=== PATIENT | female | born 1970 | race Caucasian/White ===

== ENCOUNTER 2021-10-03 09:54 | Inpatient (IN) | payer OTHER ==
[2021-10-03 10:54] LABS: Basophils % (A) 0 %; Eosinophils # (A) 0.2 k/uL (0-0.7); Eosinophils % (A) 1 %; HCT 40.9 % (34.0-46.0); HGB 14.2 gm/dL (11.4-16.0); Lymphocytes # (A) 1.1 k/uL (1.0-4.8); Lymphocytes % (A) 6 %; MCH 32.3 pg (25.0-35.0); MCHC 34.7 g/dL (31.0-37.0); MCV 93.2 fL (80.0-100.0); Mean Platelet Volume 8.9; Monocytes # (A) 0.9 k/uL (0-1.0); Monocytes % (A) 5 %; Neutrophils # (A) 16.4 k/uL (1.3-7.7); Neutrophils % (A) 88 %; Platelet Count 236 k/uL (150-450); RBC 4.39 m/uL (3.80-5.40); RDW 12.7 % (11.5-15.5); WBC 18.7 k/uL (3.8-10.6)
[2021-10-03 11:02] LABS: Appearance,Urine Cloudy (Clear); Bacteria,Urine Few /hpf; Bilirubin,Urine Negative (Negative); Blood,Urine Small (Negative); Color,Urine Yellow; Glucose,Urine (UA) Negative (Negative); Ketones,Urine 4+ (Negative); Leukocyte Esterase,Urine Moderate (Negative); Mucus,Urine Few /hpf; Nitrite,Urine Negative (Negative); Protein,Urine 2+ (Negative); RBC,Urine 7 /hpf (0-5); Specific Gravity,Urine 1.028 (1.001-1.035); Squamous Epithelial Cell,Urine 9 /hpf (0-4); WBC,Urine 12 /hpf (0-5)
[2021-10-03 11:08] LABS: ALT 13 U/L (4-34); AST 17 U/L (14-36); African American GFR (CKD) >90 (>60 ml/min/1.73 sqM); Albumin 3.8 g/dL (3.5-5.0); Alkaline Phosphatase 105 U/L (38-126); Amylase 44 U/L (30-110); Anion Gap 13 mmol/L; Blood Urea Nitrogen 9 mg/dL (7-17); Carbon Dioxide 25 mmol/L (22-30); Chloride 98 mmol/L (98-107); Glucose 106 mg/dL (74-99); Lipase 25 U/L (23-300); Non-African American GFR(CKD) 88 (>60 ml/min/1.73 sqM); Potassium 4.1 mmol/L (3.5-5.1); Sodium 136 mmol/L (137-145); Total Bilirubin 0.8 mg/dL (0.2-1.3)
[2021-10-03] MEDS ORDERED: SODIUM CHLORIDE 0.9% 2,000 ML IV ONE (11:26)
--- NOTE | 2021-10-03 11:37 | ED ---
Abdominal Pain HPI - General Chief Complaint: Abdominal Pain Stated Complaint: Appendicitis Time Seen by Provider: 10/03/21 11:25 Source: patient, RN notes reviewed Mode of arrival: ambulatory Limitations: no limitations - History of Present Illness Initial Comments: This a 51-year-old female presents emergency Department chief complaint of right-sided abdominal pain. Patient states pain started Saturday and has progressively worsened. Patient states decreased appetite, no reported fever chills states pain is worse with movement especially twisting bending sitting up. Patient said some nausea no vomiting no diarrhea no constipation no prior abdominal surgeries. Patient evaluated by outpatient primary care physician referred to emergency from for possible appendicitis. - Related Data Allergies Allergy/AdvReac Type Severity Reaction Status Date / Time No Known Allergies Allergy Verified 10/03/21 10:33 Review of Systems ROS Statement: Those systems with pertinent positive or pertinent negative responses have been documented in the HPI. ROS Other: All systems not noted in ROS Statement are negative. Past Medical History Past Medical History: No Reported History History of Any Multi-Drug Resistant Organisms: None Reported Past Surgical History: No Surgical Hx Reported Past Psychological History: No Psychological Hx Reported Smoking Status: Never smoker Past Alcohol Use History: Occasional Past Drug Use History: None Reported General Exam Limitations: no limitations General appearance: alert, in no apparent distress Head exam: Present: atraumatic, normocephalic, normal inspection Eye exam: Present: normal appearance, PERRL, EOMI. Absent: scleral icterus, conjunctival injection, periorbital swelling Respiratory exam: Present: normal lung sounds bilaterally. Absent: respiratory distress, wheezes, rales, rhonchi, stridor Cardiovascular Exam: Present: regular rate, normal rhythm, normal heart sounds. Absent: systolic murmur, diastolic murmur, rubs, gallop, clicks GI/Abdominal exam: Present: soft, tenderness (Right lower quadrant), normal bowel sounds. Absent: distended, guarding, rebound, rigid Back exam: Absent: CVA tenderness (R), CVA tenderness (L) Neurological exam: Present: alert Skin exam: Present: warm, dry, intact, normal color. Absent: rash Course Vital Signs 10/03/21 10:30 Temperature 99.0 F Pulse Rate 119 H Respiratory 18 Rate Blood Pressure 132/81 O2 Sat by Pulse 98 Oximetry Medical Decision Making - Medical Decision Making CT shows evidence of severe acute appendicitis. Patient has leukocytosis, low-grade fever. Antibiotics were ordered, IV fluid hydration case discussed with Dr Sheppard. - Lab Data Result diagrams: 10/03/21 10:41 10/03/21 10:41 Lab Results 10/03/21 10/03/21 10/03/21 Range/Units 10:41 10:41 10:48 WBC 18.7 H (3.8-10.6) k/uL RBC 4.39 (3.80-5.40) m/uL Hgb 14.2 (11.4-16.0) gm/dL Hct 40.9 (34.0-46.0) % MCV 93.2 (80.0-100.0) fL MCH 32.3 (25.0-35.0) pg MCHC 34.7 (31.0-37.0) g/dL RDW 12.7 (11.5-15.5) % Plt Count 236 (150-450) k/uL MPV 8.9 Neutrophils % 88 % Lymphocytes % 6 % Monocytes % 5 % Eosinophils % 1 % Basophils % 0 % Neutrophils # 16.4 H (1.3-7.7) k/uL Lymphocytes # 1.1 (1.0-4.8) k/uL Monocytes # 0.9 (0-1.0) k/uL Eosinophils # 0.2 (0-0.7) k/uL Basophils # 0.0 (0-0.2) k/uL Sodium 136 L (137-145) mmol/L Potassium 4.1 (3.5-5.1) mmol/L Chloride 98 (98-107) mmol/L Carbon Dioxide 25 (22-30) mmol/L Anion Gap 13 mmol/L BUN 9 (7-17) mg/dL Creatinine 0.78 (0.52-1.04) mg/dL Est GFR (CKD-EPI)AfAm >90 (>60 ml/min/1.73 sqM) Est GFR (CKD-EPI)NonAf 88 (>60 ml/min/1.73 sqM) Glucose 106 H (74-99) mg/dL Calcium 9.0 (8.4-10.2) mg/dL Total Bilirubin 0.8 (0.2-1.3) mg/dL AST 17 (14-36) U/L ALT 13 (4-34) U/L Alkaline Phosphatase 105 (38-126) U/L Total Protein 7.0 (6.3-8.2) g/dL Albumin 3.8 (3.5-5.0) g/dL Amylase 44 (30-110) U/L Lipase 25 (23-300) U/L Urine Color Yellow Urine Appearance Cloudy H (Clear) Urine pH 6.0 (5.0-8.0) Ur Specific [place] 1.028 (1.001-1.035) Urine Protein 2+ H (Negative) Urine Glucose (UA) Negative (Negative) Urine Ketones 4+ H (Negative) Urine Blood Small H (Negative) Urine Nitrite Negative (Negative) Urine Bilirubin Negative (Negative) Urine Urobilinogen 2.0 (<2.0) mg/dL Ur Leukocyte Esterase Moderate H (Negative) Urine RBC 7 H (0-5) /hpf Urine WBC 12 H (0-5) /hpf Ur Squamous Epith Cells 9 H (0-4) /hpf Urine Bacteria Few H (None) /hpf Urine Mucus Few H (None) /hpf Disposition Clinical Impression: Acute appendicitis Disposition: ADMITTED IP TO THIS [facility] Condition: Fair Referrals: None,Stated [Primary Care Provider] - 1-2 days
[2021-10-03] MEDS ORDERED: PIPERACILLIN-TAZOBACTAM 3.375 GM in SODIUM CHLORIDE 0.9% 100 ML IVPB STA (12:33)
[2021-10-03] MEDS ORDERED: SODIUM CHLORIDE 0.9% 1,000 ML IV ONE ×3 (12:33→18:53)
--- NOTE | 2021-10-03 12:39 | CT ---
EXAMINATION TYPE: CT abdomen pelvis w con DATE OF EXAM: 10/03/2021 HISTORY: Abdominal pain. Right lower quadrant pain since Saturday.r CT DLP: 881.1mGycm Automated Exposure Control for Dose Reduction was Utilized. CONTRAST: CT scan of the abdomen and pelvis is performed without oral but with IV Contrast, patient injected wi th 100 mL of Isovue 300. COMPARISON: None FINDINGS: LUNG BASES: No significant abnormality is appreciated. LIVER/GB: There is 1.8 cm thin-walled cyst in the left hepatic dome axial image 9. A few additional s ubcentimeter hypodense foci throughout the remainder liver are present. PANCREAS: No significant abnormality is seen. SPLEEN: No significant abnormality is seen. ADRENALS: Symmetric Thickening through both adrenal glands favors hyperplasia. KIDNEYS: Symmetric cortical medullary uptake and excretion without hydronephrosis seen bilaterally. BOWEL: There is 9 mm appendicolith at the base normal image 50. There are smaller appendicoliths dist ally coronal image 47. Appendix is dilated to 15 mm coronal image 48. There is severe ill-defined flu id and fat stranding surrounding the appendix. There is moderate concentric wall thickening in the te rminal and distal ileum likely reactive. No free air. No well-formed fluid collection or abscess. Air -fluid level in the right colon is present. No obvious mass. Poor distention of the distal colon with occasional diverticula. No suspicious small bowel dilatation. UTERUS/ADNEXA: Anteverted uterus. LYMPH NODES: No greater than 1cm abdominal or pelvic lymph nodes are appreciated. OSSEOUS STRUCTURES: Slight scoliotic curvature on coronal images. Reversed thoracolumbar curvature pe ak at the L1-L2 level. OTHER: No significant additional abnormality is seen. IMPRESSION: CT findings consistent with uncomplicated but severe acute appendicitis as detailed above . Critical results communicated to ordering emergency care physician early childhood teacher assistant via telephone at time of dictation.
[2021-10-03] MEDS ORDERED: HYDROmorphone 0.5 MG/0.5 ML SYRINGE IVP PRN (12:44)
[2021-10-03] MEDS ORDERED: ONDANSETRON 4 MG/2 ML VIAL IVP PRN ×2 (12:48→17:44)
[2021-10-03] MEDS: SODIUM CHLORIDE 0.9% 1,000 ML IV SCH (14:01)
--- NOTE | 2021-10-03 14:20 | P.GSCN ---
History of Present Illness Consult date: 10/03/21 History of present illness: CHIEF COMPLAINT: Abdominal pain HISTORY OF PRESENT ILLNESS: This is a 51-year-old female presented to the hospital with complaints of right lower quadrant abdominal pain that started on Saturday. She reports that her pain becomes more severe with movement and rates it about a 9 out of 10. Patient reports decreased appetite. Denies any fever chills or sweats. Denies any bowel movement changes. Denies any nausea or vomiting. Patient is tachycardic with elevated white count. Patient is admitted to hospital for acute appendicitis. Patient seen and examined in ER with Dr. haskins. PAST MEDICAL HISTORY: See list. PAST SURGICAL HISTORY: See list. MEDICATIONS: See list. ALLERGIES: See list. SOCIAL HISTORY: No illicit drug use. REVIEW OF SYSTEMS: CONSTITUTIONAL: Denies fever or chills. HEENT: Denies blurred vision, vision changes, or eye pain. Denies hemoptysis CARDIOVASCULAR: Denies chest pain or pressure. RESPIRATORY: No shortness of breath. GASTROINTESTINAL: See HPI for pertinent findings HEMATOLOGIC: Denies bleeding disorders. GENITOURINARY: Denies any blood in urine or increased urinary frequency. SKIN: Denies pruitis. Denies rash. PHYSICAL EXAM: VITAL SIGNS: Reviewed GENERAL: Well-developed in no acute distress. HEENT: No sclera icterus. Extraocular movements grossly intact. Moist buccal mucosa. Head is atraumatic, normocephalic. No nasal drainage. ABDOMEN: Soft. Nondistended. Tenderness with palpation to right lower quadrant. NEUROLOGIC: Alert and oriented. Cranial nerves II through XII grossly intact. LABORATORY DATA: WBC 18.7 Hgb 14.2 platelets 236 Sodium 136 potassium 4.1 BUN 9 creatinine 0.78 LFTs and lipase normal COVID-19 not detected Urine culture pending IMAGING: Computed tomography scan abdomen and pelvis demonstrated findings consistent with uncomplicated but severe acute appendicitis. ASSESSMENT: 1. Acute appendicitis PLAN: -Patient scheduled for laparoscopic appendectomy today with Dr. haskins -Keep patient nothing by mouth -Continue IV fluid -Continue IV antibiotic -Continue pain medication as needed Physician Service Attendant note has been reviewed by physician. Signing provider agrees with the documented findings, assessment, and plan of care. Past Medical History Past Medical History: No Reported History History of Any Multi-Drug Resistant Organisms: None Reported Past Surgical History: No Surgical Hx Reported Past Psychological History: No Psychological Hx Reported Smoking Status: Never smoker Past Alcohol Use History: Occasional Past Drug Use History: None Reported Medications and Allergies Home Medications Medication Instructions Recorded Confirmed Type Cetirizine HCl [Zyrtec] 10 mg PO DAILY 10/03/21 10/03/21 History Multivitamins, Thera [Multivitamin 1 tab PO DAILY 10/03/21 10/03/21 History (formulary)] Allergies Allergy/AdvReac Type Severity Reaction Status Date / Time No Known Allergies Allergy Verified 10/03/21 13:07 Surgical - Exam Vital Signs Temp Pulse Resp BP Pulse Ox 99.0 F 119 H 18 132/81 98 10/03/21 10:30 10/03/21 10:30 10/03/21 10:30 10/03/21 10:30 10/03/21 10:30 Results - Labs 10/03/21 10:41 10/03/21 10:41 Abnormal Lab Results - Last 24 Hours (Table) 10/03/21 10/03/21 10/03/21 Range/Units 10:41 10:41 10:48 WBC 18.7 H (3.8-10.6) k/uL Neutrophils # 16.4 H (1.3-7.7) k/uL Sodium 136 L (137-145) mmol/L Glucose 106 H (74-99) mg/dL Urine Appearance Cloudy H (Clear) Urine Protein 2+ H (Negative) Urine Ketones 4+ H (Negative) Urine Blood Small H (Negative) Ur Leukocyte Esterase Moderate H (Negative) Urine RBC 7 H (0-5) /hpf Urine WBC 12 H (0-5) /hpf Ur Squamous Epith Cells 9 H (0-4) /hpf Urine Bacteria Few H (None) /hpf Urine Mucus Few H (None) /hpf Diabetes panel 10/03/21 Range/Units 10:41 Sodium 136 L (137-145) mmol/L Potassium 4.1 (3.5-5.1) mmol/L Chloride 98 (98-107) mmol/L Carbon Dioxide 25 (22-30) mmol/L BUN 9 (7-17) mg/dL Creatinine 0.78 (0.52-1.04) mg/dL Glucose 106 H (74-99) mg/dL Calcium 9.0 (8.4-10.2) mg/dL AST 17 (14-36) U/L ALT 13 (4-34) U/L Alkaline Phosphatase 105 (38-126) U/L Total Protein 7.0 (6.3-8.2) g/dL Albumin 3.8 (3.5-5.0) g/dL Calcium panel 10/03/21 Range/Units 10:41 Calcium 9.0 (8.4-10.2) mg/dL Albumin 3.8 (3.5-5.0) g/dL Pituitary panel 10/03/21 Range/Units 10:41 Sodium 136 L (137-145) mmol/L Potassium 4.1 (3.5-5.1) mmol/L Chloride 98 (98-107) mmol/L Carbon Dioxide 25 (22-30) mmol/L BUN 9 (7-17) mg/dL Creatinine 0.78 (0.52-1.04) mg/dL Glucose 106 H (74-99) mg/dL Calcium 9.0 (8.4-10.2) mg/dL Adrenal panel 10/03/21 Range/Units 10:41 Sodium 136 L (137-145) mmol/L Potassium 4.1 (3.5-5.1) mmol/L Chloride 98 (98-107) mmol/L Carbon Dioxide 25 (22-30) mmol/L BUN 9 (7-17) mg/dL Creatinine 0.78 (0.52-1.04) mg/dL Glucose 106 H (74-99) mg/dL Calcium 9.0 (8.4-10.2) mg/dL Total Bilirubin 0.8 (0.2-1.3) mg/dL AST 17 (14-36) U/L ALT 13 (4-34) U/L Alkaline Phosphatase 105 (38-126) U/L Total Protein 7.0 (6.3-8.2) g/dL Albumin 3.8 (3.5-5.0) g/dL
[2021-10-03] MEDS ORDERED: BUPIVACAIN-EPI 0.25%-1:200,000 30 ML VIAL SQ ONE ×2 (16:07→17:13)
[2021-10-03] MEDS ORDERED: HEPARIN SODIUM,PORCINE/PF 5,000 UNIT/0.5 ML SYRINGE SQ ONE (16:25)
[2021-10-03] MEDS ORDERED: ROCURONIUM 10 MG/ML (5 ML VIAL) IV ONE (16:50)
[2021-10-03] MEDS ORDERED: PROPOFOL 10 MG/ML 20 ML VIAL IV ONE (16:50)
[2021-10-03] MEDS ORDERED: .fentaNYL (PF) 50 MCG/ML AMP ONE (16:50)
[2021-10-03] MEDS ORDERED: SUCCINYLCHOLINE CHLORIDE 100 MG/5 ML SYR IV ONE (16:50)
[2021-10-03] MEDS ORDERED: ONDANSETRON 4 MG/2 ML VIAL ONE (16:50)
[2021-10-03] MEDS ORDERED: LIDOCAINE 1% INJ 10MG/ML (20 ML MDV) ONE (16:50)
[2021-10-03] MEDS ORDERED: GLYCOPYRROLATE 0.2 MG/ML 2 ML VIAL ONE (16:50)
[2021-10-03] MEDS ORDERED: NEOSTIGMINE 1 MG/ML 10 ML VIAL ONE (16:50)
[2021-10-03] MEDS ORDERED: MIDAZOLAM 2 MG/2 ML VIAL ONE (16:50)
[2021-10-03] MEDS ORDERED: HEPARIN SODIUM,PORCINE 5,000 UNIT/ML 1 ML VIAL SQ ONE (16:52)
[2021-10-03] MEDS ORDERED: NALOXONE 0.4 MG/ML 1 ML VIAL IV PRN (17:44)
[2021-10-03] MEDS ORDERED: METOCLOPRAMIDE 5 MG/ML 2 ML VIAL IVP PRN (17:44)
[2021-10-03] MEDS ORDERED: ACETAMINOPHEN TAB 325 MG TAB PO PRN (17:44)
[2021-10-03] MEDS ORDERED: LACTATED RINGERS 1,000 ML IV ONE (17:44)
--- NOTE | 2021-10-03 17:44 | P.OP ---
Date of Procedure: 10/03/21 Preoperative Diagnosis: Acute appendicitis Postoperative Diagnosis: Gangrenous appendicitis with abscess Procedure(s) Performed: Diagnostic laparoscopy Open appendectomy Washout of pelvis Anesthesia: ANTONIO Surgeon: David Sheppard Estimated Blood Loss (ml): 25 Pathology: other (Appendix) Condition: stable Disposition: PACU Description of Procedure: The patient's placed on the operating table in the supine position. The patient received general anesthesia. The abdomen was prepped and draped in the usual sterile fashion. The skin was anesthetized 1% local Xylocaine at the trocar sites. Using an 11 blade the skin was incised at the umbilicus. The umbilicus was grasped with a York clamp and then a Veress needle was placed into the peritoneal cavity. Position of the Veress needle was confirmed with positive drop test. After adequate insufflation a 5 mm trocar was placed into the peritoneal cavity. The abdomen was further insufflated. And then the laparoscope was placed in the peritoneal cavity. Next a 5 mm trocar was placed in the midline suprapubic position. And then a 10 mm trocar was placed in the midline epigastric position. The patient was rotated with the right side up and in Trendelenburg. The appendix was visualized. The appendix appeared to necrosis. The pelvis was stuck to the abdominal sidewall. With gentle traction it was removed from the abdominal sidewall in an abscess cavity is entered. At this point decided to perform an open appendectomy. Trochars withdrawn. The skin was incised in the low midline position the abdomen was entered using left cautery. The appendix and cecum were brought towards the midline. The appendix was dissected using Harmonic scissors and then the appendiceal stump was ligated with a Endoloop. The specimens of pathology. The abscess cavity was irrigated. A CHAVA drains placed in the right lower quadrant brought out through a separate stab incision the fascia was then closed with looped #1 PDS suture. Skin was closed davion. Patient top she will was sent to recovery room stable condition
[2021-10-03] MEDS ORDERED: HYDROmorphone 1 MG/ML 1 ML SYRINGE IVP PRN (17:47)
[2021-10-03] MEDS ORDERED: KETOROLAC 15 MG/ML 1 ML VIAL IVP SCH (18:00)
[2021-10-03] MEDS ORDERED: HYDROmorphone 0.5 MG/0.5 ML SYRINGE IVP ONE ×2 (18:18→18:33)
[2021-10-03] MEDS: KETOROLAC 30 MG/ML 1 ML VIAL IVP SCH (20:00)
[2021-10-03] MEDS: PIPERACILLIN-TAZOBACTAM 3.375 GM in SODIUM CHLORIDE 0.9% 100 ML IVPB SCH (21:57)
[2021-10-04] MEDS: SODIUM CHLORIDE 0.9% 1,000 ML IV SCH ×4 (02:21→20:49)
[2021-10-04] MEDS: KETOROLAC 30 MG/ML 1 ML VIAL IVP SCH ×4 (02:33→20:43)
[2021-10-04] MEDS: PIPERACILLIN-TAZOBACTAM 3.375 GM in SODIUM CHLORIDE 0.9% 100 ML IVPB SCH ×3 (05:25→20:44)
[2021-10-04] MEDS: ENOXAPARIN 40 MG/0.4 ML SYRINGE SQ SCH (08:32)
[2021-10-04 08:54] LABS: Basophils % (A) 0 %; Eosinophils # (A) 0.1 k/uL (0-0.7); Eosinophils % (A) 1 %; HCT 36.8 % (34.0-46.0); HGB 12.2 gm/dL (11.4-16.0); Lymphocytes # (A) 0.7 k/uL (1.0-4.8); Lymphocytes % (A) 7 %; MCHC 33.1 g/dL (31.0-37.0); MCV 96.7 fL (80.0-100.0); Mean Platelet Volume 8.6; Monocytes # (A) 0.6 k/uL (0-1.0); Monocytes % (A) 6 %; Neutrophils # (A) 8.5 k/uL (1.3-7.7); Neutrophils % (A) 85 %; Platelet Count 244 k/uL (150-450); RBC 3.81 m/uL (3.80-5.40); RDW 12.9 % (11.5-15.5); WBC 10.1 k/uL (3.8-10.6)
[2021-10-04 09:15] LABS: ALT 10 U/L (4-34); AST 18 U/L (14-36); African American GFR (CKD) >90 (>60 ml/min/1.73 sqM); Albumin 2.6 g/dL (3.5-5.0); Alkaline Phosphatase 70 U/L (38-126); Anion Gap 8 mmol/L; Blood Urea Nitrogen 9 mg/dL (7-17); Calcium 7.3 mg/dL (8.4-10.2); Carbon Dioxide 22 mmol/L (22-30); Chloride 110 mmol/L (98-107); Glucose 85 mg/dL (74-99); Non-African American GFR(CKD) >90 (>60 ml/min/1.73 sqM); Potassium 3.9 mmol/L (3.5-5.1); Sodium 140 mmol/L (137-145); Total Bilirubin 0.7 mg/dL (0.2-1.3); Total Protein 5.1 g/dL (6.3-8.2)
[2021-10-04] MEDS: LACTATED RINGERS 1,000 ML IV SCH ×2 (11:16→14:03)
[2021-10-04 13:47] VITALS: BMI 27.3
--- NOTE | 2021-10-04 14:54 | P.PN ---
Subjective Progress Note Date: 10/04/21 CHIEF COMPLAINT: Abdominal pain HISTORY OF PRESENT ILLNESS: Patient is postop day #1 status post diagnostic laparoscopy, open appendectomy and washout of pelvis. Patient reports that her pain is tolerable. She denies any nausea or vomiting. No flatus. She feels dry and thirsty. She is urinating. Did have a low-grade temperature 100 this morning. WBC has normalized at 10.1 hemoglobin 12.2 PHYSICAL EXAM: VITAL SIGNS: Reviewed. GENERAL: Well-developed in no acute distress. HEENT: No sclera icterus. Extraocular movements grossly intact. Moist buccal mucosa. Head is atraumatic, normocephalic. ABDOMEN: Soft. Nondistended. Nontender. NEUROLOGIC: Alert and oriented. Cranial nerves II through XII grossly intact. ASSESSMENT: 1. Acute gangrenous appendicitis with abscess status post diagnostic laparoscopy, open appendectomy and washout of pelvis PLAN: -Advance diet to a clear liquid diet -increase IV fluids of lactated Ringer at 125 mL an hour -Continue pain medication as needed -Continue antibiotics -Encouraged patient to use incentive spirometer -Encouraged patient to increase activity -DVT prophylaxis Lovenox and GI prophylaxis Protonix Physician Recreational Assistant note has been reviewed by physician. Signing provider agrees with the documented findings, assessment, and plan of care. Objective - Vital Signs Vital signs: Vital Signs Temp 98.8 F 10/04/21 14:26 Pulse 98 10/04/21 14:26 Resp 16 10/04/21 14:26 BP 106/64 10/04/21 14:26 Pulse Ox 96 10/04/21 14:26 Intake & Output 10/03/21 10/04/21 10/04/21 18:59 06:59 18:59 Intake Total 925 575 Output Total 65 280 80 Balance 860 295 -80 Weight 72.121 kg 72.121 kg 72.121 kg Intake: IV 925 Intake, IV Titration 575 Amount Sodium Chloride 0.9% 1, 575 000 ml @ 0 mls/hr IV .STALICE App -MED ONE Rx#:[id number] Output: Drainage 80 80 Right Abdomen 80 80 Urine 200 Estimated Blood Loss 65 Other: Voiding Method Toilet # Voids 1 3 # Bowel Movements 0 - Labs CBC & Chem 7: 10/04/21 08:36 10/04/21 08:36 Labs: Abnormal Lab Results - Last 24 Hours (Table) 10/04/21 10/04/21 Range/Units 08:36 08:36 Neutrophils # 8.5 H (1.3-7.7) k/uL Lymphocytes # 0.7 L (1.0-4.8) k/uL Chloride 110 H (98-107) mmol/L Calcium 7.3 L (8.4-10.2) mg/dL Total Protein 5.1 L (6.3-8.2) g/dL Albumin 2.6 L (3.5-5.0) g/dL Microbiology - Last 24 Hours (Table) 10/03/21 10:48 Urine Culture - Preliminary Urine,Voided
--- NOTE | 2021-10-04 21:56 | P.CONS ---
History of Present Illness - Reason for Consult Consult date: 10/04/21 Medical management - Chief Complaint Abdominal pain - History of Present Illness Patient is a 51-year-old female without significant past medical history presents to ER with complaints of abdominal pain. Abdominal pain is mainly in the right lower quadrant worsening since Saturday night. Patient states that she has been having decreased appetite. Associated nausea. No episodes of vo miting. No fever no chills. Patient was seen by her primary care physician and referred to ER for possible acute appendicitis. Denies any recent illnesses. CT of the abdomen pelvis showed consistent with uncomplicated but severe acute appendicitis. Patient underwent open appendectomy and diagnostic laparoscopy. Was found to have gangrenous appendicitis with abscess. Laboratory showed WBC 18.7 hemoglobin 14.1 platelets 236 neutrophils 16.4 sodium 136 BUN 9 and creatinine 0.78 Urinalysis showed cloudy with 4+ ketones and moderate leukocyte esterase and elevated RBCs and WBCs. Coronavirus PCR not detected. Review of Systems Constitutional: Patient denies any fever or chills . No generalized weakness or weight loss. Abdomen: Patient denied nausea vomiting and diarrhea and + abdominal pain. Cardiovascular: Patient denies any chest pain or short of breath no palpitations. Respiratory: patient denied any cough or sputum production. No shortness of breath Neurologic: Patient denied any numbness or tingling headache. Musculoskeletal: Patient denies any complaints of joint swelling or deformity. Skin: Negative Psychiatric: Negative Endocrine: No heat or cold intolerance. No recent weight gain. Genitourinary: No dysuria or hematuria. All other 14 point ROS negative except the above Past Medical History Past Medical History: No Reported History Additional Past Medical History / Comment(s): Seasonal allergies History of Any Multi-Drug Resistant Organisms: None Reported Past Surgical History: No Surgical Hx Reported Additional Past Surgical History / Comment(s): Pt has never had surgery Past Anesthesia/Blood Transfusion Reactions: Unable to Obtain Additional Past Anesthesia/Blood Transfusion Reaction / Comm: Pt has never had surgery. Smoking Status: Never smoker - Past Family History Mother Additional Family Medical History / Comment(s): Diverticular disease Father Family Medical History: COPD Medications and Allergies Home Medications Medication Instructions Recorded Confirmed Type Cetirizine HCl [Zyrtec] 10 mg PO DAILY 10/03/21 10/03/21 History Multivitamins, Thera [Multivitamin 1 tab PO DAILY 10/03/21 10/03/21 History (formulary)] Allergies Allergy/AdvReac Type Severity Reaction Status Date / Time No Known Allergies Allergy Verified 10/03/21 15:57 Physical Exam Vitals: Vital Signs Temp Pulse Pulse Resp BP Pulse Ox 10/04/21 07:44 98.6 F 101 H 14 93/61 98 10/04/21 05:35 98.9 F 10/04/21 03:20 100 F H 95 16 92/61 98 10/04/21 00:00 99.2 F 98 16 104/73 98 10/03/21 22:49 91 16 92/64 96 10/03/21 21:49 91 16 94/66 95 10/03/21 21:19 89 14 102/70 96 10/03/21 20:49 94 16 102/67 95 10/03/21 20:35 100 16 101/70 96 10/03/21 20:19 96 18 98/67 96 10/03/21 20:05 92 16 102/69 100 10/03/21 19:50 97.8 F 96 16 97/65 100 10/03/21 19:21 92 16 104/58 96 10/03/21 19:06 94 16 102/57 98 10/03/21 18:51 95 16 102/59 95 10/03/21 18:36 96 16 98/57 99 10/03/21 18:21 93 16 99/54 99 10/03/21 18:06 96 18 110/59 99 10/03/21 17:51 97.1 F L 110 H 16 118/70 99 10/03/21 15:58 99.0 F 107 H 17 112/64 97 Intake and Output 10/03/21 10/04/21 10/04/21 22:59 06:59 14:59 Intake Total 925 575 Output Total 105 240 40 Balance 820 335 -40 Intake: IV 925 Intake, IV Titration 575 Amount Sodium Chloride 0.9% 1, 575 000 ml @ 0 mls/hr IV .STK -MED ONE Rx#:[id number] Output: Drainage 40 40 40 Right Abdomen 40 40 40 Urine 200 Estimated Blood Loss 65 Other: # Voids 1 # Bowel Movements 0 Weight 72.121 kg PHYSICAL EXAMINATION: Patient is lying in the bed comfortably, no acute distress, awake alert and oriented.. HEENT: Normocephalic. Neck is supple. Pupils reactive. Nostrils clear. Oral cavity is moist. Neck reveals no JVD, carotid bruits, or thyromegaly. CHEST EXAMINATION: Trachea is central. Symmetrical expansion. Lung hernandez clear to auscultation and percussion. CARDIAC: Normal S1, S2 with no gallops. No murmurs ABDOMEN: Soft. Bowel sounds normal. No organomegaly. No abdominal bruits. Tenderness over the right lower quadrant surgical site. Extremities: reveal no edema. No clubbing or cyanosis Neurologically awake, alert, oriented x3 with well-coordinated movements. No focal deficits noted Skin: No rash or skin lesions. Psychiatric: Cooperative. Nonsuicidal Musculoskeletal: No joint swelling or deformity. Normal range of motion. Results CBC & Chem 7: 10/04/21 08:36 10/04/21 08:36 Labs: Abnormal Lab Results - Last 24 Hours (Table) 10/03/21 10/03/21 10/03/21 Range/Units 10:41 10:41 10:48 WBC 18.7 H (3.8-10.6) k/uL Neutrophils # 16.4 H (1.3-7.7) k/uL Lymphocytes # (1.0-4.8) k/uL Sodium 136 L (137-145) mmol/L Chloride (98-107) mmol/L Glucose 106 H (74-99) mg/dL Calcium (8.4-10.2) mg/dL Total Protein (6.3-8.2) g/dL Albumin (3.5-5.0) g/dL Urine Appearance Cloudy H (Clear) Urine Protein 2+ H (Negative) Urine Ketones 4+ H (Negative) Urine Blood Small H (Negative) Ur Leukocyte Esterase Moderate H (Negative) Urine RBC 7 H (0-5) /hpf Urine WBC 12 H (0-5) /hpf Ur Squamous Epith Cells 9 H (0-4) /hpf Urine Bacteria Few H (None) /hpf Urine Mucus Few H (None) /hpf 10/04/21 10/04/21 Range/Units 08:36 08:36 WBC (3.8-10.6) k/uL Neutrophils # 8.5 H (1.3-7.7) k/uL Lymphocytes # 0.7 L (1.0-4.8) k/uL Sodium (137-145) mmol/L Chloride 110 H (98-107) mmol/L Glucose (74-99) mg/dL Calcium 7.3 L (8.4-10.2) mg/dL Total Protein 5.1 L (6.3-8.2) g/dL Albumin 2.6 L (3.5-5.0) g/dL Urine Appearance (Clear) Urine Protein (Negative) Urine Ketones (Negative) Urine Blood (Negative) Ur Leukocyte Esterase (Negative) Urine RBC (0-5) /hpf Urine WBC (0-5) /hpf Ur Squamous Epith Cells (0-4) /hpf Urine Bacteria (None) /hpf Urine Mucus (None) /hpf Microbiology - Last 24 Hours (Table) 10/03/21 10:48 Urine Culture - Preliminary Urine,Voided Assessment and Plan Assessment: Acute gangrenous appendicitis with abscess. Status post diagnostic laparoscopy followed by open appendectomy. Sepsis secondary above Possible UTI DVT prophylaxis with heparin subcu Plan: Patient is status post appendectomy. Patient will be current on IV hydration and antibiotics in the form of Zosyn. Follow-up culture reports. Pain management and DVT prophylaxis as per primary team. Encourage incentive spirometry and ambulation. We will continue to follow and further recommendations based on the clinical course.
[2021-10-05] MEDS: SODIUM CHLORIDE 0.9% 1,000 ML IV SCH (01:55)
[2021-10-05] MEDS: LACTATED RINGERS 1,000 ML IV SCH ×3 (02:27→19:45)
[2021-10-05] MEDS: KETOROLAC 30 MG/ML 1 ML VIAL IVP SCH ×3 (02:27→13:56)
[2021-10-05] MEDS: PIPERACILLIN-TAZOBACTAM 3.375 GM in SODIUM CHLORIDE 0.9% 100 ML IVPB SCH ×3 (05:52→20:27)
[2021-10-05] MEDS: PANTOPRAZOLE 40 MG TABLET PO SCH (06:39)
[2021-10-05 08:41] LABS: Basophils # (A) 0.1 k/uL (0-0.2); Basophils % (A) 1 %; Eosinophils # (A) 0.2 k/uL (0-0.7); Eosinophils % (A) 2 %; HCT 33.5 % (34.0-46.0); HGB 11.1 gm/dL (11.4-16.0); Lymphocytes % (A) 8 %; MCH 32.1 pg (25.0-35.0); MCV 97.2 fL (80.0-100.0); Mean Platelet Volume 8.6; Monocytes # (A) 0.7 k/uL (0-1.0); Monocytes % (A) 5 %; Neutrophils # (A) 10.1 k/uL (1.3-7.7); Neutrophils % (A) 81 %; Platelet Count 260 k/uL (150-450); RBC 3.44 m/uL (3.80-5.40); RDW 13.1 % (11.5-15.5); WBC 12.4 k/uL (3.8-10.6)
[2021-10-05] MEDS: ENOXAPARIN 40 MG/0.4 ML SYRINGE SQ SCH (09:03)
[2021-10-05] MEDS ORDERED: HYDROcodone/APAP 5-325MG 1 EACH TAB PO PRN (15:35)
--- NOTE | 2021-10-05 15:37 | P.PN ---
Subjective Progress Note Date: 10/05/21 CHIEF COMPLAINT: Abdominal pain HISTORY OF PRESENT ILLNESS: Patient is postop day #2 status post diagnostic laparoscopy, open appendectomy and washout of pelvis. Patient reports that her pain is tolerable. She denies any nausea or vomiting. She is having flatus. She has been up and ambulating. Afebrile. Tachycardia resolved. WBC is up at 12.4 Hgb 11.1 ABDOMEN: Soft. Nondistended. incisional dressing small area of blood saturation . CHAVA drain with serosanguineous output 50 mL NEUROLOGIC: Alert and oriented. Cranial nerves II through XII grossly intact. ASSESSMENT: 1. Acute gangrenous appendicitis with abscess status post diagnostic laparoscopy, open appendectomy and washout of pelvis 2. Leukocytosis PLAN: -Advance diet to full liquids and then as tolerated -Hep-Lock IV fluids -Repeat CBC -Continue pain medication as needed. ADD Rheems -Continue antibiotics -Encouraged patient to use incentive spirometer -Encouraged patient to increase activity -DVT prophylaxis Lovenox and GI prophylaxis Protonix Physician Yarn Bleaching Machine Operator note has been reviewed by physician. Signing provider agrees with the documented findings, assessment, and plan of care. Objective - Vital Signs Vital signs: Vital Signs Temp 97.7 F 10/05/21 14:10 Pulse 89 10/05/21 14:10 Resp 18 10/05/21 14:10 BP 106/69 10/05/21 14:10 Pulse Ox 99 10/05/21 14:10 Intake & Output 10/04/21 10/05/21 10/05/21 18:59 06:59 18:59 Intake Total 1830 Output Total 80 90 20 Balance -80 1740 -20 Weight 72.121 kg Intake: Intake, IV Titration 1350 Amount Lactated Ringers 1,000 ml 1250 @ 125 mls/hr IV .Q8H BEKAH Rx#:[id number] Piperacillin-Tazobactam 3 100 .375 gm In Sodium Chloride 0.9% 100 ml @ 25 mls/hr IVPB Q8H BEKAH Rx#: [id number] Oral 480 Output: Drainage 80 90 20 Right Abdomen 80 90 20 Other: Voiding Method Toilet # Voids 3 2 - Labs CBC & Chem 7: 10/05/21 08:19 10/04/21 08:36 Labs: Abnormal Lab Results - Last 24 Hours (Table) 12/02/21 Range/Units 08:19 WBC 12.4 H (3.8-10.6) k/uL RBC 3.44 L (3.80-5.40) m/uL Hgb 11.1 L (11.4-16.0) gm/dL Hct 33.5 L (34.0-46.0) % Neutrophils # 10.1 H (1.3-7.7) k/uL Microbiology - Last 24 Hours (Table) 10/03/21 12:45 Blood Culture - Preliminary Blood No Growth after 48 hours 10/03/21 12:35 Blood Culture - Preliminary Blood No Growth after 48 hours 10/03/21 10:48 Urine Culture - Final Urine,Voided
[2021-10-06] MEDS: LACTATED RINGERS 1,000 ML IV SCH (02:02)
--- NOTE | 2021-10-06 02:17 | P.PN ---
Subjective Progress Note Date: 10/05/21 - Reason for Consult Consult date: 10/04/21 Medical management - Chief Complaint Abdominal pain - History of Present Illness Patient is a 51-year-old female without significant past medical history pres ents to ER with complaints of abdominal pain. Abdominal pain is mainly in the right lower quadrant worsening since Saturday night. Patient states that she has been having decreased appetite. Associated nausea. No episodes of vomiting. No fever no chills. Patient was seen by her primary care physician and referred to ER for possible acute appendicitis. Denies any recent illnesses. CT of the abdomen pelvis showed consistent with uncomplicated but severe acute appendicitis. Patient underwent open appendectomy and diagnostic laparoscopy. Was found to have gangrenous appendicitis with abscess. Laboratory showed WBC 18.7 hemoglobin 14.1 platelets 236 neutrophils 16.4 sodium 136 BUN 9 and creatinine 0.78 Urinalysis showed cloudy with 4+ ketones and moderate leukocyte esterase and elevated RBCs and WBCs. Coronavirus PCR not detected. 10/05/2021 Patient is seen and evaluated in follow up this morning and currently sitting up in the chair in no acute distress. Patient is status post appendectomy and maintained on IVantibiotics while awaiting finalized specimen. Mild leukocytosis. Afebrile. Labs within normal limits and will repeat. Encouraged increased activity as tolerated and diet is being advanced as tolerated. INcentive spirometer. Patient denies any chest pain or palpitations, denies shortness of breath, no reported nausea or vomiting and tolerated diet. Active Medications Acetaminophen (Acetaminophen Tab 325 Mg Tab) 650 mg PO Q6HR PRN PRN Reason: Mild Pain or Fever >= 100.5 Hydrocodone Bitart/Acetaminophen (Hydrocodone/Apap 5-325mg 1 Each Tab) 1 each PO Q4HR PRN PRN Reason: Pain Enoxaparin Sodium (Enoxaparin 40 Mg/0.4 Ml Syringe) 40 mg SQ DAILY [facility] Last Admin: 10/05/21 09:03 Dose: 40 mg Documented by: Hydromorphone HCl (Hydromorphone 1 Mg/Ml 1 Ml Syringe) 1 mg IVP Q3HR PRN PRN Reason: SEVERE Pain Last Admin: 10/03/21 21:33 Dose: 1 mg Documented by: Piperacillin Sod/Tazobactam (Sod 3.375 gm/ Sodium Chloride) 100 mls @ 25 mls/hr IVPB Q8H BEKAH Last Admin: 10/05/21 20:27 Dose: 25 mls/hr Documented by: Lactated Ringer's (Lactated Ringers) 1,000 mls @ 125 mls/hr IV .Q8H [facility] Last Admin: 10/05/21 19:45 Dose: Not Given Documented by: Metoclopramide HCl (Metoclopramide 5 Mg/Ml 2 Ml Vial) 10 mg IVP Q6H PRN PRN Reason: Nausea And Vomiting Naloxone HCl (Naloxone 0.4 Mg/Ml 1 Ml Vial) 0.2 mg IV Q2M PRN PRN Reason: Opioid Reversal Ondansetron HCl (Ondansetron 4 Mg/2 Ml Vial) 4 mg IVP Q6HR PRN PRN Reason: Nausea And Vomiting Pantoprazole Sodium (Pantoprazole 40 Mg Tablet) 40 mg PO AC-BRKFST [facility] Last Admin: 10/05/21 06:39 Dose: 40 mg Documented by: PHYSICAL EXAMINATION: Patient is sitting up in the chair comfortably, no acute distress, awake alert and oriented.. HEENT: Normocephalic. Neck is supple. Pupils reactive. Nostrils clear. Oral cavity is moist. Neck reveals no JVD, carotid bruits, or thyromegaly. CHEST EXAMINATION: Trachea is central. Symmetrical expansion. Lung hernandez clear to auscultation and percussion. CARDIAC: Normal S1, S2 with no gallops. No murmurs ABDOMEN: Soft. Bowel sounds normal. No organomegaly. No abdominal bruits. Tenderness over the right lower quadrant surgical site. CHAVA drain noted with minimal serosanguinous fluid Extremities: reveal no edema. No clubbing or cyanosis Neurologically awake, alert, oriented x3 with well-coordinated movements. No focal deficits noted Skin: No rash or skin lesions. Psychiatric: Cooperative. Nonsuicidal Musculoskeletal: No joint swelling or deformity. Normal range of motion. Assessment: Acute gangrenous appendicitis with abscess. Status post diagnostic laparoscopy followed by open appendectomy. Sepsis secondary above mild leukocytosis Possible UTI DVT prophylaxis with heparin subcu Plan: Patient is status post appendectomy. Patient will be continued on IV hydration and antibiotics in the form of Zosyn. Follow-up culture reports pending. WBC trending down and will repeat am labs. Pain management and DVT prophylaxis as per primary team. Encourage incentive spirometry and ambulation. Patient reports to passing gas with no bowel movements as of yet. Tolerating diet and being advanced per surgery. Will repeat am labs. We will continue to follow and further recommendations based on the clinical course. Thank you for this consultation. Objective - Vital Signs Vital signs: Vital Signs Temp 98.8 F 10/05/21 20:00 Pulse 86 10/05/21 20:00 Resp 18 10/05/21 20:00 BP 113/69 10/05/21 20:00 Pulse Ox 95 10/05/21 20:00 Intake & Output 10/05/21 10/05/21 10/06/21 06:59 18:59 06:59 Intake Total 1830 400 Output Total 90 60 Balance 1740 340 Intake: Intake, IV Titration 1350 Amount Lactated Ringers 1,000 ml 1250 @ 125 mls/hr IV .Q8H BEKAH Rx#:[id number] Piperacillin-Tazobactam 3 100 .375 gm In Sodium Chloride 0.9% 100 ml @ 25 mls/hr IVPB Q8H BEK[facility] Rx#: [id number] Oral 480 400 Output: Drainage 90 60 Right Abdomen 90 60 Other: Voiding Method Toilet # Voids 2 3 - Labs CBC & Chem 7: 10/05/21 08:19 10/04/21 08:36 Labs: Abnormal Lab Results - Last 24 Hours (Table) 10/05/21 Range/Units 08:19 WBC 12.4 H (3.8-10.6) k/uL RBC 3.44 L (3.80-5.40) m/uL Hgb 11.1 L (11.4-16.0) gm/dL Hct 33.5 L (34.0-46.0) % Neutrophils # 10.1 H (1.3-7.7) k/uL Microbiology - Last 24 Hours (Table) 10/03/21 12:45 Blood Culture - Preliminary Blood No Growth after 48 hours 10/03/21 12:35 Blood Culture - Preliminary Blood No Growth after 48 hours
[2021-10-06 02:23] VITALS: RESP 16
[2021-10-06] MEDS: PIPERACILLIN-TAZOBACTAM 3.375 GM in SODIUM CHLORIDE 0.9% 100 ML IVPB SCH (06:01)
[2021-10-06] MEDS: PANTOPRAZOLE 40 MG TABLET PO SCH (06:01)
[2021-10-06 07:23] LABS: Basophils # (A) 0.1 k/uL (0-0.2); Basophils % (A) 0 %; Eosinophils # (A) 0.3 k/uL (0-0.7); Eosinophils % (A) 2 %; HCT 32.5 % (34.0-46.0); HGB 10.9 gm/dL (11.4-16.0); Lymphocytes # (A) 1.4 k/uL (1.0-4.8); Lymphocytes % (A) 12 %; MCH 31.9 pg (25.0-35.0); MCHC 33.6 g/dL (31.0-37.0); MCV 94.9 fL (80.0-100.0); Mean Platelet Volume 8.5; Monocytes # (A) 0.7 k/uL (0-1.0); Monocytes % (A) 6 %; Neutrophils # (A) 9.4 k/uL (1.3-7.7); Neutrophils % (A) 77 %; Platelet Count 288 k/uL (150-450); RBC 3.42 m/uL (3.80-5.40); RDW 13.2 % (11.5-15.5); WBC 12.2 k/uL (3.8-10.6)
[2021-10-06 08:46] VITALS: BP 119/74; PULSE 74; TEMP 98.2
[2021-10-06] MEDS ORDERED: IBUPROFEN 600 MG TAB PO PRN (10:30)
--- NOTE | 2021-10-06 12:16 | P.DS ---
Providers Date of admission: 10/04/21 11:22 Expected date of discharge: 10/06/21 Attending physician: David Sheppard Consults: 10/03/21 17:44 Consult Physician Routine Consulting Provider: Ariana Whipple Consult Reason/Comments: Medical management Do you want consulting provider notified?: Already Contacted Primary care physician: Stated None Hospital Course: Discharge diagnosis 1. Acute gangrenous appendicitis with abscess status post diagnostic laparoscopy, open appendectomy and washout of pelvis 2. Leukocytosis Hospital course This is a 51-year-old female presented to the hospital with complaints of right lower quadrant abdominal pain that started on Saturday. She reports that her pain becomes more severe with movement and rates it about a 9 out of 10. Patient reports decreased appetite. Denies any fever chills or sweats. Denies any bowel movement changes. Denies any nausea or vomiting. Patient is tachycardic with elevated white count. Patient is admitted to hospital for acute appendicitis. Computed tomography scan abdomen and pelvis demonstrated findings consistent with uncomplicated but severe acute appendicitis. Patient is status post diagnostic laparoscopy, open appendectomy and washout of pelvis for Acute gangrenous appendicitis with abscess. Patient tolerated surgery well. Her pain is controlled. She has been up and ambulating. She is having flatus. She is tolerating diet. She is afebrile. Her incision site did have some dried blood noted. She'll be discharged home with antibiotics. Patient is stable for discharge. Please refer to chart for any further details. Physician Director Facilities Maintenance note has been reviewed by physician. Signing provider agrees with the documented findings, assessment, and plan of care. Patient Condition at Discharge: Stable Plan - Discharge Summary Discharge Rx Participant: No New Discharge Prescriptions: New Levofloxacin [Levaquin] 500 mg PO DAILY 10 Days #10 tab HYDROcodone/APAP 5-325MG [Osborn 5-325] 1 tab PO Q6HR PRN 3 Days #12 tab PRN Reason: Pain Ibuprofen [Motrin] 600 mg PO Q8HR PRN #30 tab PRN Reason: Pain Continue Cetirizine HCl [Zyrtec] 10 mg PO DAILY Multivitamins, Thera [Multivitamin (formulary)] 1 tab PO DAILY Discharge Medication List Cetirizine HCl [Zyrtec] 10 mg PO DAILY 10/03/21 [History] Multivitamins, Thera [Multivitamin (formulary)] 1 tab PO DAILY 10/03/21 [History] HYDROcodone/APAP 5-325MG [Osborn 5-325] 1 tab PO Q6HR PRN 3 Days #12 tab 10/06/21 [Rx] Ibuprofen [Motrin] 600 mg PO Q8HR PRN #30 tab 10/06/21 [Rx] Levofloxacin [Levaquin] 500 mg PO DAILY 10 Days #10 tab 10/06/21 [Rx] Follow up Appointment(s)/Referral(s): None,Stated [Primary Care Provider] - 1-2 days David Sheppard MD [STAFF PHYSICIAN] - 10/17/21 3:30 pm Activity/Diet/Wound Care/Special Instructions: No driving while taking Osborn No lifting over 10 pounds You may shower. No soaking or tub baths for 2 weeks Very light activity until you are reevaluated at your follow up appointment with your surgeon Keep a log of CHAVA drain output and bring with you to your follow-up appointment Milk/strip drains 2-3 times a day Discharge/Stand Alone Forms: Work/School Release / Restrict Discharge Disposition: HOME SELF-CARE
[2021-10-06] MEDS: ENOXAPARIN 40 MG/0.4 ML SYRINGE SQ SCH (12:43)
--- NOTE | 2021-10-07 01:27 | P.PN ---
Subjective Progress Note Date: 10/06/21 - Reason for Consult Consult date: 10/04/21 Medical management - Chief Complaint Abdominal pain - History of Present Illness Patient is a 51-year-old female without significant past medical history pres ents to ER with complaints of abdominal pain. Abdominal pain is mainly in the right lower quadrant worsening since Saturday night. Patient states that she has been having decreased appetite. Associated nausea. No episodes of vomiting. No fever no chills. Patient was seen by her primary care physician and referred to ER for possible acute appendicitis. Denies any recent illnesses. CT of the abdomen pelvis showed consistent with uncomplicated but severe acute appendicitis. Patient underwent open appendectomy and diagnostic laparoscopy. Was found to have gangrenous appendicitis with abscess. Laboratory showed WBC 18.7 hemoglobin 14.1 platelets 236 neutrophils 16.4 sodium 136 BUN 9 and creatinine 0.78 Urinalysis showed cloudy with 4+ ketones and moderate leukocyte esterase and elevated RBCs and WBCs. Coronavirus PCR not detected. 10/05/2021 Patient is seen and evaluated in follow up this morning and currently sitting up in the chair in no acute distress. Patient is status post appendectomy and maintained on IVantibiotics while awaiting finalized specimen. Mild leukocytosis. Afebrile. Labs within normal limits and will repeat. Encouraged increased activity as tolerated and diet is being advanced as tolerated. INcentive spirometer. Patient denies any chest pain or palpitations, denies shortness of breath, no reported nausea or vomiting and tolerated diet. 10/06/2021 Patient is seen in follow up this morning with no acute overnight issues. Patient states she is feeling much better today. Patient continues with some mild discomfort noted at the surgical site, but states is improved. Site is dry and intact with surgical dressing removed and some crusted blood noted from surgery with no surrounding redness or inflammation noted. right lower abdomen CHAVA drain noted. Patient continues on IV zosyn and will transition to oral Levaquin on discharge. WBC trending down and afebrile. Tolerated diet. Passing flatus and no reported bowel movement. PHYSICAL EXAMINATION: Patient is sitting up in bed comfortably, no acute distress, awake alert and oriented.. HEENT: Normocephalic. Neck is supple. Pupils reactive. Nostrils clear. Oral cavity is moist. Neck reveals no JVD, carotid bruits, or thyromegaly. CHEST EXAMINATION: Trachea is central. Symmetrical expansion. Lung hernandez clear to auscultation and percussion. CARDIAC: Normal S1, S2 with no gallops. No murmurs ABDOMEN: Soft. Bowel sounds normal. No organomegaly. No abdominal bruits. Tenderness over the right lower quadrant surgical site. CHAVA drain noted with mi nimal serosanguinous fluid Extremities: reveal no edema. No clubbing or cyanosis Neurologically awake, alert, oriented x3 with well-coordinated movements. No focal deficits noted Skin: No rash or skin lesions. Psychiatric: Cooperative. Non-suicidal Musculoskeletal: No joint swelling or deformity. Normal range of motion. Assessment: Acute gangrenous appendicitis with abscess. Status post diagnostic laparoscopy followed by open appendectomy. Sepsis secondary above,improved mild leukocytosis, trending down Possible UTI, urine cultures negative DVT prophylaxis with heparin subcu Plan: Patient is status post appendectomy. Patient maintained on antibiotics in the form of Zosyn. WBC trending down. Patient is afebrile. Pain management and DVT prophylaxis as per primary team. Encourage incentive spirometry and ambulation. Patient reports to passing gas with no bowel movements as of yet. Tolerating diet. We will continue to follow with surgery during hospitalization. Thank you for this consultation. Patients states she is being discharged today. Objective - Vital Signs Vital signs: Vital Signs Temp 98.2 F 10/06/21 08:31 Pulse 74 10/06/21 08:31 Resp 16 10/06/21 08:31 BP 119/74 10/06/21 08:31 Pulse Ox 95 10/06/21 08:31 Intake & Output 10/05/21 10/06/21 10/06/21 18:59 06:59 18:59 Intake Total 400 Output Total 60 Balance 340 Intake: Oral 400 Output: Drainage 60 Right Abdomen 60 Other: Voiding Method Toilet # Voids 3 - Labs CBC & Chem 7: 10/06/21 06:41 10/04/21 08:36 Labs: Abnormal Lab Results - Last 24 Hours (Table) 10/06/21 Range/Units 06:41 WBC 12.2 H (3.8-10.6) k/uL RBC 3.42 L (3.80-5.40) m/uL Hgb 10.9 L (11.4-16.0) gm/dL Hct 32.5 L (34.0-46.0) % Neutrophils # 9.4 H (1.3-7.7) k/uL Microbiology - Last 24 Hours (Table) 10/03/21 12:45 Blood Culture - Preliminary Blood No Growth after 48 hours 10/03/21 12:35 Blood Culture - Preliminary Blood No Growth after 48 hours
== END 2021-10-06 13:44 | disposition home or self-care (01) | DRG 853 ==
LOC: EC 09:54 → 6PED 13:28 → OBSVTOIN 10-04 11:22 → 6PED 10-05 02:12
PROVIDERS: ADMIT Surgery; ATTEND Surgery
PROC: 0WJG4ZZ Inspection of Peritoneal Cavity, Percutaneous Endoscopic Approach (ICD-10-PCS; principal; 2021-10-03 10:25)
PROC: 0DTJ0ZZ Resection of Appendix, Open Approach (ICD-10-PCS; principal; 2021-10-03 10:25)
DX: A41.9 Sepsis, unspecified organism (principal); K35.33 Acute appendicitis with perforation, localized peritonitis, and gangrene, with abscess; J30.2 Other seasonal allergic rhinitis; Z20.822 Contact with and (suspected) exposure to COVID-19; Z79.899 Other long term (current) drug therapy; Z82.5 Family history of asthma and other chronic lower respiratory diseases; Z83.79 Family history of other diseases of the digestive system
CPT/HCPCS: 36415; 74177; 80053; 81001; 82150; 83690; 84703; 85025; 87040; 87086; 87635; 88304; 96361; 96365; 96375; 99285

== ENCOUNTER 2021-10-08 18:43 | Emergency (ER) | payer OTHER ==
[2021-10-08 18:50] VITALS: RESP 18
[2021-10-08] MEDS ORDERED: MORPHINE SULFATE 4 MG/ML SYRINGE IV STA (19:07)
[2021-10-08] MEDS ORDERED: SODIUM CHLORIDE 0.9% 1,000 ML IV STA (19:07)
[2021-10-08] MEDS ORDERED: ONDANSETRON 4 MG/2 ML VIAL IVP STA (19:07)
--- NOTE | 2021-10-08 19:13 | ED ---
General Adult HPI - General Source: patient, family, RN notes reviewed, old records reviewed Mode of arrival: wheelchair Limitations: no limitations - History of Present Illness -: days(s) (1) Location: abdomen (Right-sided abdomen) Radiation: non-radiation Severity scale (1-10): 7 Quality: burning Consistency: constant Improves with: none Worsens with: movement Associated Symptoms: denies other symptoms Treatments Prior to Arrival: other (Antibiotics) <Shubham Dennis - Last Filed: 10/08/21 21:47> <Tl Palumbo - Last Filed: 10/09/21 00:01> - General Chief complaint: Abdominal Pain Stated complaint: post op-abd pain Time Seen by Provider: 10/08/21 18:58 - History of Present Illness Initial comments: 51-year-old female, alert and oriented 4, presents to the emergency room with family member complaining of right-sided abdominal pain. Patient states that she had an appendectomy with Dr. Sheppard on October 04. She was discharged home on Saturday the . She states that they had to do an exploratory surgery because the appendix was necrotic with an abscess. She was given multiple doses of IV antibiotics while in the hospital and sent home on Levaquin. She states that today she developed some pain sharp and burning between the drain site and the incision site. She was told by Dr. Jauregui to return to the emergency room with any increasing pain which is why she came in today. She denies any fevers. She states she does have nausea but no vomiting. She is passing gas and is having bowel movements. (Shubham Dennis) - Related Data Home Medications Medication Instructions Recorded Confirmed Cetirizine HCl [Zyrtec] 10 mg PO DAILY 10/03/21 10/08/21 Multivitamins, Thera [Multivitamin 1 tab PO DAILY 10/03/21 10/08/21 (formulary)] Previous Rx's Medication Instructions Recorded HYDROcodone/APAP 5-325MG [[place] 1 tab PO Q6HR PRN 3 Days #12 tab 10/06/21 5-325] Ibuprofen [Motrin] 600 mg PO Q8HR PRN #30 tab 10/06/21 Levofloxacin [Levaquin] 500 mg PO DAILY 10 Days #10 tab 10/06/21 Allergies Allergy/AdvReac Type Severity Reaction Status Date / Time No Known Allergies Allergy Verified 10/08/21 19:27 Review of Systems ROS Other: All systems not noted in ROS Statement are negative. <Shubham Dennis - Last Filed: 10/08/21 21:47> ROS Other: All systems not noted in ROS Statement are negative. <Tl Palumbo - Last Filed: 10/09/21 00:01> ROS Statement: Those systems with pertinent positive or pertinent negative responses have been documented in the HPI. Past Medical History Past Medical History: No Reported History Additional Past Medical History / Comment(s): Seasonal allergies History of Any Multi-Drug Resistant Organisms: None Reported Past Surgical History: Appendectomy Additional Past Surgical History / Comment(s): Pt has never had surgery Past Anesthesia/Blood Transfusion Reactions: Unable to Obtain Additional Past Anesthesia/Blood Transfusion Reaction / Comment(s): Pt has never had surgery. Past Psychological History: No Psychological Hx Reported Smoking Status: Never smoker Past Alcohol Use History: None Reported Past Drug Use History: None Reported - Past Family History Mother Additional Family Medical History / Comment(s): Diverticular disease Father Family Medical History: COPD <Shubham Dennis - Last Filed: 10/08/21 21:47> General Exam Limitations: no limitations General appearance: alert, in no apparent distress Head exam: Present: atraumatic, normocephalic, normal inspection Eye exam: Present: normal appearance, EOMI ENT exam: Present: normal exam, normal oropharynx, mucous membranes dry Respiratory exam: Present: normal lung sounds bilaterally. Absent: respiratory distress, wheezes, rales, rhonchi, stridor, chest wall tenderness, accessory muscle use Cardiovascular Exam: Present: bradycardia, normal heart sounds. Absent: JVD GI/Abdominal exam: Present: soft, tenderness (Incision site with davion no active bleeding and no purulence no erythema, pain to the right side of the abdomen to incision site and CHAVA drain), normal bowel sounds. Absent: distended, guarding, rebound, rigid Rectal exam: Present: other (CHAVA drain draining sanguinous fluid) Extremities exam: Present: normal inspection, full ROM, normal capillary refill. Absent: tenderness, pedal edema, joint swelling, calf tenderness Back exam: Present: normal inspection, full ROM. Absent: tenderness, CVA tenderness (R), CVA tenderness (L), rash noted Neurological exam: Present: alert, oriented X3 Psychiatric exam: Present: normal affect, normal mood Skin exam: Present: warm, dry, intact, normal color. Absent: rash, cyanosis, diaphoretic, erythema <Shubham Dennis - Last Filed: 10/08/21 21:47> Course Vital Signs 10/08/21 10/08/21 10/08/21 18:47 19:32 20:00 Temperature 98.4 F Pulse Rate 58 L 59 L 68 Respiratory 18 18 18 Rate Blood Pressure 142/66 144/77 143/69 O2 Sat by Pulse 97 97 95 Oximetry 10/08/21 21:34 Temperature 97.8 F Pulse Rate 60 Respiratory 18 Rate Blood Pressure 141/69 O2 Sat by Pulse 96 Oximetry Medical Decision Making - Lab Data Result diagrams: 10/08/21 19:29 10/08/21 19:29 <Shubham Dennis - Last Filed: 10/08/21 21:47> - Lab Data Result diagrams: 10/08/21 19:29 10/08/21 19:29 <Tl Palumbo - Last Filed: 10/09/21 00:01> - Medical Decision Making 51-year-old female patient, alert and oriented 4, presents to the emergency room complaining of abdominal pain on the right side between incision site and the CHAVA drain. Patient had an open appendectomy on October 04 and was discharged on Saturday the . Patient has a CHAVA drain in place draining sanguinous fluid, the incision site is intact with no erythema or purulent drainage. Patient states that she is nauseated but not vomiting. She is passing gas and is having bowel movements. She is returning to the emergency room at the direction of her surgeon who told her if she had increased pain to come back. She denies any fevers. Her abdomen is soft. CT of the abdomen and pelvis with contrast shows mild fat stranding and fluid in the lower abdomen there is some new mild presacral fluid compared to the old exam fluid in the abdomen. The surgical site appears not significantly different than the preop exam. Bilateral pleural effusions and right basilar infiltrate and atelectasis compared to previous exam. White blood cell count is 10. Patient has been afebrile. She is currently on Levaquin. Case discussed with Dr. Velazquez and Dr. Palumbo. Dr. Palumbo did speak with Dr. Sheppard and the patient will be discharged home to follow up with him in the office as scheduled. Patient was directed to return to the emergency room with any new or concerning symptoms. Continue her previously prescription medications for pain and antibiotics. (Shubham Dennis) I spoke with the patient's surgeon, Dr. Sheppard, over the phone and repeat the patient's presentation, labs, as well as imaging with him. He believes patient is stable for discharge home with follow-up in the office, which is already set up. This was conveyed to the patient as well as to the mid-level provider taking care of the patient at this time. Patient is feeling improved. She'll be discharged home in good condition. (Tl Palumbo) - Lab Data Lab Results 10/08/21 10/08/21 10/08/21 Range/Units 19:29 19:29 19:29 WBC 10.0 (3.8-10.6) k/uL RBC 3.66 L (3.80-5.40) m/uL Hgb 11.6 (11.4-16.0) gm/dL Hct 34.3 (34.0-46.0) % MCV 93.8 (80.0-100.0) fL MCH 31.7 (25.0-35.0) pg MCHC 33.8 (31.0-37.0) g/dL RDW 13.4 (11.5-15.5) % Plt Count 338 (150-450) k/uL MPV 8.8 Neutrophils % 81 % Lymphocytes % 10 % Monocytes % 5 % Eosinophils % 1 % Basophils % 0 % Neutrophils # 8.1 H (1.3-7.7) k/uL Lymphocytes # 1.0 (1.0-4.8) k/uL Monocytes # 0.5 (0-1.0) k/uL Eosinophils # 0.1 (0-0.7) k/uL Basophils # 0.0 (0-0.2) k/uL Sodium 140 (137-145) mmol/L Potassium 3.6 (3.5-5.1) mmol/L Chloride 102 (98-107) mmol/L Carbon Dioxide 27 (22-30) mmol/L Anion Gap 11 mmol/L BUN 4 L (7-17) mg/dL Creatinine 0.53 (0.52-1.04) mg/dL Est GFR (CKD-EPI)AfAm >90 (>60 ml/min/1.73 sqM) Est GFR (CKD-EPI)NonAf >90 (>60 ml/min/1.73 sqM) Glucose 106 H (74-99) mg/dL Plasma Lactic Acid Giovanni 0.9 (0.7-2.0) mmol/L Calcium 8.4 (8.4-10.2) mg/dL Total Bilirubin 0.4 (0.2-1.3) mg/dL AST 26 (14-36) U/L ALT 18 (4-34) U/L Alkaline Phosphatase 67 (38-126) U/L Total Protein 5.8 L (6.3-8.2) g/dL Albumin 2.7 L (3.5-5.0) g/dL Amylase 39 (30-110) U/L Lipase 45 (23-300) U/L Disposition Is patient prescribed a controlled substance at d/c from ED?: No Time of Disposition: 21:29 <Shubham Dennis - Last Filed: 10/08/21 21:47> <Tl Palumbo - Last Filed: 10/09/21 00:01> Clinical Impression: Postoperative abdominal pain Disposition: HOME SELF-CARE Condition: Good Instructions (If sedation given, give patient instructions): Abdominal Pain (ED) Additional Instructions: Continue taking the antibiotics as prescribed. Take pain medication as prescribed when needed. Keep your appointment with your surgeon next week as scheduled. Return to the emergency room with any new or concerning symptoms. Referrals: Medhat Ervin MD [Primary Care Provider] - 1-2 days
[2021-10-08 19:38] LABS: Basophils % (A) 0 %; Eosinophils # (A) 0.1 k/uL (0-0.7); Eosinophils % (A) 1 %; HCT 34.3 % (34.0-46.0); HGB 11.6 gm/dL (11.4-16.0); Lymphocytes % (A) 10 %; MCH 31.7 pg (25.0-35.0); MCHC 33.8 g/dL (31.0-37.0); MCV 93.8 fL (80.0-100.0); Mean Platelet Volume 8.8; Monocytes # (A) 0.5 k/uL (0-1.0); Monocytes % (A) 5 %; Neutrophils # (A) 8.1 k/uL (1.3-7.7); Neutrophils % (A) 81 %; Platelet Count 338 k/uL (150-450); RBC 3.66 m/uL (3.80-5.40); RDW 13.4 % (11.5-15.5)
[2021-10-08 19:56] LABS: ALT 18 U/L (4-34); AST 26 U/L (14-36); African American GFR (CKD) >90 (>60 ml/min/1.73 sqM); Albumin 2.7 g/dL (3.5-5.0); Alkaline Phosphatase 67 U/L (38-126); Amylase 39 U/L (30-110); Anion Gap 11 mmol/L; Blood Urea Nitrogen 4 mg/dL (7-17); Calcium 8.4 mg/dL (8.4-10.2); Carbon Dioxide 27 mmol/L (22-30); Chloride 102 mmol/L (98-107); Glucose 106 mg/dL (74-99); Lipase 45 U/L (23-300); Non-African American GFR(CKD) >90 (>60 ml/min/1.73 sqM); Potassium 3.6 mmol/L (3.5-5.1); Sodium 140 mmol/L (137-145); Total Bilirubin 0.4 mg/dL (0.2-1.3); Total Protein 5.8 g/dL (6.3-8.2)
--- NOTE | 2021-10-08 20:58 | CT ---
EXAMINATION TYPE: CT abdomen pelvis w con DATE OF EXAM: 10/08/2021 COMPARISON: 10/03/2021 HISTORY: abdominal pain post-op appy CT DLP: 912.8 mGycm Automated exposure control for dose reduction was used. CONTRAST: Performed with IV Contrast, patient injected with 100 mL of Isovue 300. Images obtained from the diaphragm to the floor the pelvis with IV contrast. There are bilateral pleural effusions and larger on the right side. Heart size is normal. There is so me atelectasis and infiltrate right posterior lung base. Liver shows no focal defect. Gallbladder appears normal. Spleen is intact. There is no pancreatic mas s. Stomach is intact. There is no adrenal mass. Kidneys show satisfactory contrast opacification. There is no hydronephrosi s. Ureters are not dilated. There is no retroperitoneal adenopathy. There is drainage catheter in the lower anterior abdomen. There is some minimal fat stranding in the lower abdomen and minimal fluid r ight paracolic gutter. Bladder distends smoothly. Uterus is anteverted. There is no pelvic mass. Ther e is small amount of presacral fluid. There is no lumbar compression fracture. Bony pelvis is intact. Hip joints are intact. There is a mi ld thoracolumbar levoscoliosis. IMPRESSION: There is some mild fat stranding and fluid in the lower abdomen. There is some new mild presacral flu id compared to old exam. Fluid in the mid abdomen and at the surgical site of appendectomy appears no t significantly different than preoperative exam. Bilateral pleural effusions and right basilar infiltrate and atelectasis is new compared to previous exam.
[2021-10-08 21:36] VITALS: BP 141/69; PULSE 60; TEMP 97.8
== END 2021-10-08 21:39 | disposition home or self-care (01) ==
LOC: EC 18:43
DX: R10.9 Unspecified abdominal pain (principal); G89.18 Other acute postprocedural pain; Z90.49 Acquired absence of other specified parts of digestive tract
CPT/HCPCS: 80053; 82150; 83605; 83690; 85025; 74177; 99284; 96374; 96375; 96361; J2270; J2405; Q9967

== ENCOUNTER 2021-10-23 01:32 | Emergency (ER) | payer OTHER ==
[2021-10-23 01:42] VITALS: TEMP 98.4
--- NOTE | 2021-10-23 02:37 | XR ---
EXAMINATION TYPE: XR chest 2V DATE OF EXAM: 10/23/2021 COMPARISON: NONE HISTORY: Syncope TECHNIQUE: FINDINGS: Heart and mediastinum are normal. Lungs are clear. Diaphragm is normal. Bony thorax appears normal. IMPRESSION: Normal chest.
--- NOTE | 2021-10-23 02:59 | ED ---
General Adult HPI - General Chief complaint: Syncope Stated complaint: Syncope Time Seen by Provider: 10/23/21 01:39 Source: patient, EMS Mode of arrival: EMS Limitations: no limitations - History of Present Illness Initial comments: 51-year-old female patient presents to the emergency department today for evaluation after having a syncopal episode at home. States she was diagnosed with COVID today. States she's been sick for the last week with upper respiratory symptoms. States she got up from bed to go to the bathroom and passed out. She denies any injuries. States she did have a headache throughout the day at attributed it to COVID. Denies history of passing out. Denies any chest pain or shortness of breath. Denies any palpitations. Denies taking any new medications. She has had a few episodes of diarrhea. Patient denies any recent rash, fever, chills, abdominal pain, nausea, vomiting, diarrhea, constipation, back pain, numbness, tingling, hematuria, dysuria, urinary urgency, urinary frequency, visual changes, or any other complaints. - Related Data Home Medications Medication Instructions Recorded Confirmed Cetirizine HCl [Zyrtec] 10 mg PO DAILY 10/03/21 10/08/21 Multivitamins, Thera [Multivitamin 1 tab PO DAILY 10/03/21 10/08/21 (formulary)] Previous Rx's Medication Instructions Recorded HYDROcodone/APAP 5-325MG [[place]y 1 tab PO Q6HR PRN 3 Days #12 tab 10/06/21 5-325] Ibuprofen [Motrin] 600 mg PO Q8HR PRN #30 tab 10/06/21 Levofloxacin [Levaquin] 500 mg PO DAILY 10 Days #10 tab 10/06/21 Allergies Allergy/AdvReac Type Severity Reaction Status Date / Time No Known Allergies Allergy Verified 10/08/21 19:27 Review of Systems ROS Statement: Those systems with pertinent positive or pertinent negative responses have been documented in the HPI. ROS Other: All systems not noted in ROS Statement are negative. Past Medical History Past Medical History: No Reported History Additional Past Medical History / Comment(s): Seasonal allergies History of Any Multi-Drug Resistant Organisms: None Reported Past Surgical History: Appendectomy Additional Past Surgical History / Comment(s): Pt has never had surgery Past Anesthesia/Blood Transfusion Reactions: Unable to Obtain Additional Past Anesthesia/Blood Transfusion Reaction / Comment(s): Pt has never had surgery. Past Psychological History: No Psychological Hx Reported Smoking Status: Never smoker Past Alcohol Use History: None Reported Past Drug Use History: None Reported - Past Family History Mother Additional Family Medical History / Comment(s): Diverticular disease Father Family Medical History: COPD General Exam Limitations: no limitations General appearance: alert, in no apparent distress, other (This is a well- developed, well-nourished adult female patient in no acute distress. ) ENT exam: Present: normal exam, normal oropharynx, mucous membranes moist Neck exam: Present: normal inspection, full ROM. Absent: tenderness, meningismus, lymphadenopathy Respiratory exam: Present: normal lung sounds bilaterally. Absent: respiratory distress, wheezes, rales, rhonchi, stridor Cardiovascular Exam: Present: regular rate, normal rhythm, normal heart sounds. Absent: systolic murmur, diastolic murmur, rubs, gallop, clicks GI/Abdominal exam: Present: soft, normal bowel sounds. Absent: distended, t enderness, guarding, rebound, rigid Back exam: Present: normal inspection. Absent: vertebral tenderness Neurological exam: Present: alert, oriented X3, CN II-XII intact Psychiatric exam: Present: normal affect, normal mood Skin exam: Present: warm, dry, intact, normal color. Absent: rash Course Vital Signs 10/23/21 10/23/21 01:38 04:24 Temperature 98.4 F Pulse Rate 82 94 Respiratory 16 18 Rate Blood Pressure 114/71 121/66 O2 Sat by Pulse 98 95 Oximetry EKG Findings - EKG Comments: EKG Findings:: EKG obtained at 226 shows normal sinus rhythm with a ventricular rate of 86, MO interval 144, QRS duration 72, QT 388, QTC 464. No evidence of ST elevation or depression. Medical Decision Making - Medical Decision Making 51-year-old female patient recently diagnosed with COVID-19 presents for evaluation after having a syncopal episode at home. Physical examination is unremarkable. She is neurologically intact with no focal deficits. She has no injuries from the fall. Labs reviewed and showed elevated d-dimer. CT chest angiography was performed was negative for pulmonary embolism. Did show left-s ided pneumonia. She did meet criteria to receive monoclonal antibody infusion. She tolerated the infusion well. She states discharged WITH her primary care physician for recheck in 1-2 days. Return parameters were discussed in detail. She verbalizes understanding and agrees with this plan. My attending is Dr. Parsons. - Lab Data Result diagrams: 10/23/21 02:26 10/23/21 02:26 Lab Results 10/23/21 10/23/21 10/23/21 Range/Units 02:26 02:26 02:26 WBC 5.8 (3.8-10.6) k/uL RBC 3.93 (3.80-5.40) m/uL Hgb 12.4 (11.4-16.0) gm/dL Hct 38.8 (34.0-46.0) % MCV 98.8 D (80.0-100.0) fL MCH 31.6 (25.0-35.0) pg MCHC 32.0 (31.0-37.0) g/dL RDW 13.9 (11.5-15.5) % Plt Count 165 D (150-450) k/uL MPV 9.2 Neutrophils % 78 % Lymphocytes % 12 % Monocytes % 7 % Eosinophils % 0 % Basophils % 0 % Neutrophils # 4.5 (1.3-7.7) k/uL Lymphocytes # 0.7 L (1.0-4.8) k/uL Monocytes # 0.4 (0-1.0) k/uL Eosinophils # 0.0 (0-0.7) k/uL Basophils # 0.0 (0-0.2) k/uL PT 10.4 (9.0-12.0) sec INR 1.0 (<1.2) APTT 24.4 (22.0-30.0) sec D-Dimer 0.80 H (<0.60) mg/L FEU Sodium 136 L (137-145) mmol/L Potassium 3.6 (3.5-5.1) mmol/L Chloride 103 (98-107) mmol/L Carbon Dioxide 23 (22-30) mmol/L Anion Gap 10 mmol/L BUN 5 L (7-17) mg/dL Creatinine 0.62 (0.52-1.04) mg/dL Est GFR (CKD-EPI)AfAm >90 (>60 ml/min/1.73 sqM) Est GFR (CKD-EPI)NonAf >90 (>60 ml/min/1.73 sqM) Glucose 103 H (74-99) mg/dL Calcium 7.8 L (8.4-10.2) mg/dL Magnesium 1.7 (1.6-2.3) mg/dL Total Bilirubin 0.3 (0.2-1.3) mg/dL AST 36 (14-36) U/L ALT 24 (4-34) U/L Alkaline Phosphatase 72 (38-126) U/L Troponin I (0.000-0.034) ng/mL Total Protein 5.8 L (6.3-8.2) g/dL Albumin 2.9 L (3.5-5.0) g/dL Urine Color Urine Appearance (Clear) Urine pH (5.0-8.0) Ur Specific [place] (1.001-1.035) Urine Protein (Negative) Urine Glucose (UA) (Negative) Urine Ketones (Negative) Urine Blood (Negative) Urine Nitrite (Negative) Urine Bilirubin (Negative) Urine Urobilinogen (<2.0) mg/dL Ur Leukocyte Esterase (Negative) 10/23/21 10/23/21 Range/Units 02:26 04:24 WBC (3.8-10.6) k/uL RBC (3.80-5.40) m/uL Hgb (11.4-16.0) gm/dL Hct (34.0-46.0) % MCV (80.0-100.0) fL MCH (25.0-35.0) pg MCHC (31.0-37.0) g/dL RDW (11.5-15.5) % Plt Count (150-450) k/uL MPV Neutrophils % % Lymphocytes % % Monocytes % % Eosinophils % % Basophils % % Neutrophils # (1.3-7.7) k/uL Lymphocytes # (1.0-4.8) k/uL Monocytes # (0-1.0) k/uL Eosinophils # (0-0.7) k/uL Basophils # (0-0.2) k/uL PT (9.0-12.0) sec INR (<1.2) APTT (22.0-30.0) sec D-Dimer (<0.60) mg/L FEU Sodium (137-145) mmol/L Potassium (3.5-5.1) mmol/L Chloride (98-107) mmol/L Carbon Dioxide (22-30) mmol/L Anion Gap mmol/L BUN (7-17) mg/dL Creatinine (0.52-1.04) mg/dL Est GFR (CKD-EPI)AfAm (>60 ml/min/1.73 sqM) Est GFR (CKD-EPI)NonAf (>60 ml/min/1.73 sqM) Glucose (74-99) mg/dL Calcium (8.4-10.2) mg/dL Magnesium (1.6-2.3) mg/dL Total Bilirubin (0.2-1.3) mg/dL AST (14-36) U/L ALT (4-34) U/L Alkaline Phosphatase (38-126) U/L Troponin I <0.012 (0.000-0.034) ng/mL Total Protein (6.3-8.2) g/dL Albumin (3.5-5.0) g/dL Urine Color Yellow Urine Appearance Clear (Clear) Urine pH 6.5 (5.0-8.0) Ur Specific [place] 1.016 (1.001-1.035) Urine Protein Negative (Negative) Urine Glucose (UA) Negative (Negative) Urine Ketones 2+ H (Negative) Urine Blood Negative (Negative) Urine Nitrite Negative (Negative) Urine Bilirubin Negative (Negative) Urine Urobilinogen <2.0 (<2.0) mg/dL Ur Leukocyte Esterase Negative (Negative) - Radiology Data Radiology results: report reviewed, image reviewed Two-view x-ray of the chest is obtained. Report reviewed in its entirety. Impression by Dr. Riley shows poorly marginated infiltrate in the periphery of the left lung in the mid to lower lung field. CT chest angiography for pulmonary embolus was obtained. Report is reviewed in its entirety. Impression by Dr. Riley shows no evidence of pulmonary embolus and. Mild airspace pneumonia left upper lobe and left lower lobe as above. Disposition Clinical Impression: Syncope, Pneumonia due to COVID-19 virus Disposition: HOME SELF-CARE Condition: Good Instructions (If sedation given, give patient instructions): Coronavirus Disease 2019 (COVID-19) Additional Instructions: Tips to help you feel better: -Maintain adequate fluid intake - especially water. -Rest, you are healing your body will require extra sleep. -Eat even if you do not feel like it - broth, jello, toast are fine if you cannot eat full meals. -Take tylenol and motrin alternating (if you have no allergies or have not been instructed to avoid these medications) to help with body aches and fevers. -Obtain over the counter vitamin C, zinc, and vitamin D3. -Take medications as prescribed. Follow-up with your primary care physician for recheck in 1-2 days. Return for any new, worsening, or concerning symptoms. Is patient prescribed a controlled substance at d/c from ED?: No Referrals: Medhat Ervin MD [Primary Care Provider] - 1-2 days
[2021-10-23 03:14] LABS: Basophils % (A) 0 %; Eosinophils % (A) 0 %; HCT 38.8 % (34.0-46.0); HGB 12.4 gm/dL (11.4-16.0); Lymphocytes # (A) 0.7 k/uL (1.0-4.8); Lymphocytes % (A) 12 %; MCH 31.6 pg (25.0-35.0); Mean Platelet Volume 9.2; Monocytes # (A) 0.4 k/uL (0-1.0); Monocytes % (A) 7 %; Neutrophils # (A) 4.5 k/uL (1.3-7.7); Neutrophils % (A) 78 %; RBC 3.93 m/uL (3.80-5.40); RDW 13.9 % (11.5-15.5); WBC 5.8 k/uL (3.8-10.6)
[2021-10-23 03:21] LABS: MCV 98.8 fL (80.0-100.0); Platelet Count 165 k/uL (150-450)
[2021-10-23 03:27] LABS: Partial Thromboplastin Time 24.4 sec (22.0-30.0); Prothrombin Time 10.4 sec (9.0-12.0)
[2021-10-23 03:39] LABS: Potassium 3.6 mmol/L (3.5-5.1)
[2021-10-23 03:42] LABS: ALT 24 U/L (4-34); AST 36 U/L (14-36); African American GFR (CKD) >90 (>60 ml/min/1.73 sqM); Albumin 2.9 g/dL (3.5-5.0); Alkaline Phosphatase 72 U/L (38-126); Anion Gap 10 mmol/L; Blood Urea Nitrogen 5 mg/dL (7-17); Calcium 7.8 mg/dL (8.4-10.2); Carbon Dioxide 23 mmol/L (22-30); Chloride 103 mmol/L (98-107); Glucose 103 mg/dL (74-99); Magnesium 1.7 mg/dL (1.6-2.3); Non-African American GFR(CKD) >90 (>60 ml/min/1.73 sqM); Sodium 136 mmol/L (137-145); Total Bilirubin 0.3 mg/dL (0.2-1.3); Total Protein 5.8 g/dL (6.3-8.2)
--- NOTE | 2021-10-23 04:01 | CT ---
EXAMINATION TYPE: CT chest angio for PE DATE OF EXAM: 10/23/2021 COMPARISON: HISTORY: R/O PE CT DLP: 251.60 mGycm Automated exposure control for dose reduction was used. CONTRAST: Performed with IV Contrast, patient injected with 60 mL of Isovue 370. There are 3-D post processed images. Heart size is normal. There are no hilar masses. There is no mediastinal adenopathy. Thoracic aorta i s intact. There is no aneurysm or dissection. There is normal contrast opacification of the pulmonary arteries. There are no filling defects. There is some patchy infiltrate in the periphery of the left lung in the posterior segment left upper lobe and also the lateral aspect superior segment of the left lower lobe. There is some pleural reac tion and atelectasis left posterior lung base. Thoracic spine is intact. There is no compression fracture. Sternum is intact. There is no evidence o f a rib fracture. Upper abdominal soft tissues are intact. IMPRESSION: No evidence of pulmonary embolism. Mild airspace pneumonia in the left upper lobe and left lower lobe as above.
[2021-10-23 04:24] VITALS: BP 121/66; PULSE 94; RESP 18
[2021-10-23 04:38] LABS: Appearance,Urine Clear (Clear); Bilirubin,Urine Negative (Negative); Blood,Urine Negative (Negative); Color,Urine Yellow; Glucose,Urine (UA) Negative (Negative); Ketones,Urine 2+ (Negative); Leukocyte Esterase,Urine Negative (Negative); Nitrite,Urine Negative (Negative); PH, Urine 6.5 (5.0-8.0); Protein,Urine Negative (Negative); Specific Gravity,Urine 1.016 (1.001-1.035); Urobilinogen,Urine <2.0 mg/dL (<2.0)
[2021-10-23] MEDS ORDERED: BAMLANIVIMAB (EUA) 700 MG, ETESEVIMAB (EUA) 1,400 MG in SODIUM CHLORIDE 0.9% 50 ML IVPB ONE (04:45)
[2021-10-23] MEDS ORDERED: SODIUM CHLORIDE 0.9% 50 ML IVPB ONE (04:45)
== END 2021-10-23 05:56 | disposition home or self-care (01) ==
LOC: EC 01:32
DX: U07.1 COVID-19 (principal); J12.82 Pneumonia due to coronavirus disease 2019; R55 Syncope and collapse
CPT/HCPCS: 36415; 93005; 85379; 80053; 83735; 84484; 85025; 85610; 85730; 81003; 71046; 71275; 99284; Q9967; J3490

== ENCOUNTER → 2022-11-09 | Outpatient (CLI) | payer OTHER ==
[2022-11-09 17:45] LABS: Basophils # (A) 0.09 X 10*3/uL (0.00-0.10); Basophils % (A) 1.4 %; Eosinophils # (A) 0.12 X 10*3/uL (0.04-0.35); Eosinophils % (A) 1.9 %; HCT 47.4 % (37.2-46.3); HGB 14.8 g/dL (12.0-15.0); Immature Grans, Automated 0.2 %; Lymphocytes # (A) 2.01 X 10*3/uL (0.90-5.00); Lymphocytes % (A) 32.3 %; MCH 30.6 pg (27.0-32.0); MCHC 31.2 g/dL (32.0-37.0); MCV 98.1 fL (80.0-97.0); Mean Platelet Volume 11.5 fL (9.5-12.2); NRBC Per 100 WBC 0 /100 WBCS (0.0-0.0); Neutrophils # (A) 3.49 X 10*3/uL (1.80-7.70); Neutrophils % (A) 56.2 %; Platelet Count 240 X 10*3/uL (140-440); RBC 4.83 X 10*6/uL (4.10-5.20); RDW 12.6 % (11.5-14.5); WBC 6.22 X 10*3/uL (4.50-10.00)
== END | disposition home or self-care (01) ==
LOC: LABPAT 10:29
PROVIDERS: ATTEND Surgery
DX: Z01.812 Encounter for preprocedural laboratory examination (principal); K43.2 Incisional hernia without obstruction or gangrene
CPT/HCPCS: 36415; 85025

== ENCOUNTER 2022-11-14 08:24 | Day surgery (SDC) | payer OTHER ==
[2022-11-09 13:04] VITALS: BMI 25.2
[~2022-11-14 08:24] MED LIST: ACETAMINOPHEN TAB 500 MG TAB PO PRN; DEXAMETHASONE SOD PHOSPHATE 4 MG/ML 1 ML VIAL IV ONE; HEPARIN SODIUM,PORCINE/PF 5,000 UNIT/0.5 ML SYRINGE SQ PRN; HYDROmorphone 0.5 MG/0.5 ML SYRINGE IVP PRN; LACTATED RINGERS 1,000 ML IV SCH; LIDOCAINE 1% (10MG/ML) FOR IV START INTRADERMA PRN; ONDANSETRON 4 MG/2 ML VIAL IVP ONE; SCOPOLAMINE 1 MG/72 HR PATCH TRANSDERM ONE
[2022-11-14 09:34] LABS: Glucose,Whole Blood 85 mg/dL (70-110)
[2022-11-14] MEDS ORDERED: MIDAZOLAM 2 MG/2 ML VIAL IVP ONE (09:58)
[2022-11-14] MEDS ORDERED: SUCCINYLCHOLINE CHLORIDE 200 MG/10 ML VIAL IV ONE (10:22)
[2022-11-14] MEDS ORDERED: LIDOCAINE 2% INJ 20 MG/ML (2 ML VIAL) ONE (10:22)
[2022-11-14] MEDS ORDERED: SODIUM CHLORIDE 0.9% (PF) 10 ML VIAL ONE (10:22)
[2022-11-14] MEDS ORDERED: ROPIVACAINE 5 MG/ML 30 ML VIAL ONE (10:22)
[2022-11-14] MEDS ORDERED: KETOROLAC 15 MG/ML 1 ML VIAL ONE (10:22)
[2022-11-14] MEDS ORDERED: KETAMINE 10 MG/ML 20 ML VIAL ONE (10:22)
[2022-11-14] MEDS ORDERED: ROCURONIUM 10 MG/ML (5 ML VIAL) IV ONE (10:22)
[2022-11-14] MEDS ORDERED: PROPOFOL 10 MG/ML 20 ML VIAL IV ONE (10:22)
[2022-11-14] MEDS ORDERED: fentaNYL (PF) 50 MCG/ML 2 ML AMP ONE (10:22)
[2022-11-14] MEDS ORDERED: DEXAMETHASONE SOD PHOSPHATE 4 MG/ML 1 ML VIAL ONE (10:22)
[2022-11-14] MEDS ORDERED: NEOSTIGMINE 1 MG/ML 10 ML VIAL ONE (10:22)
[2022-11-14] MEDS ORDERED: GLYCOPYRROLATE 0.2 MG/ML 2 ML VIAL ONE (10:22)
[2022-11-14] MEDS ORDERED: BUPIVACAIN-EPI 0.25%-1:200,000 30 ML VIAL SQ ONE (10:46)
[2022-11-14] MEDS ORDERED: LACTATED RINGERS 1,000 ML IV ONE (11:30)
[2022-11-14 11:52] VITALS: TEMP 97.4
[2022-11-14 12:52] VITALS: RESP 16
[2022-11-14 14:38] VITALS: BP 117/74; PULSE 85
--- NOTE | 2022-11-14 16:47 | P.OP ---
Date of Procedure: 11/14/22 Preoperative Diagnosis: Incisional hernia Postoperative Diagnosis: Incisional hernia Procedure(s) Performed: Laparoscopic robotic-assisted repair of incisional hernia Transversus abdominis plane block Anesthesia: ANTONIO Surgeon: David Sheppard Estimated Blood Loss (ml): 5 Pathology: none sent Condition: stable Disposition: PACU Description of Procedure: The patient was placed on the operating table in the supine position. He received general anesthesia. His abdomen was prepped and draped usual fashion. Using a 5 mm optical trocar under direct visualization the peritoneal cavity was entered in the left upper quadrant. The abdomen was then insufflated. The laparoscope was placed back into the perineal cavity. Next a 8 mm robotic trocar was placed in the left lower quadrant and a 12 mm robotic trocar was placed in the left lateral position. The original 5 mm trocar was exchanged for a 8 mm robotic trocar. A four-quadrant transversus abdominis plane block was performed with 1% local Xylocaine. The patient's placed in the left side up position. And the patient was docked to the robot. The incisional hernia was visualized. Using hook cautery the peritoneum over the incisional hernia was excised. The fascial opening was repaired using 0V LOC suture. Next a piece of 11 cm round ventral light ST mesh was placed into the. Cavity and secured with 2 OV lock suture. The patient was undocked the robot. The needles were retrieved. The fascia of the 12 mm trocar site was closed with 0 Ethibond suture. Skin was closed interrupted 3-0 Monocryl suture. Dermabond dressings was applied. Patient tolerated procedure well and was sent to recovery room stable condition.
--- NOTE | 2022-11-15 10:56 | P.ANPRN ---
Procedure Note - Anesthesia - Nerve Block Performed Bilateral Erector Spinae Single Time Out Performed: Yes Date of Procedure: 11/14/22 Procedure Start Time: 09:57 Procedure Stop Time: 10:08 Location of Patient: PreOp Indication: Acute Post-Operative Pain, Requested by Surgeon Sedation Type: Sedate with meaningful contact maintained Preparation: Sterile Prep Position: Prone Needle Types: Pajunk Needle Gauge: 21 Ultrasound used to visualize needle placement: Yes Ultrasound used to observe medication spread: Yes Blood Aspirated: No Pain Paresthesia on Injection Noted: No Resistance on Injection: Normal Image Stored and Saved: Yes Events: Uneventful and Well Tolerated (Ropivacaine 0.5% 15 mL plus normal saline 10 mL was dexamethasone 4 mg given bilaterally at L1)
== END 2022-11-14 14:55 | disposition home or self-care (01) ==
LOC: OR 08:24
PROVIDERS: ATTEND Surgery
DX: K43.2 Incisional hernia without obstruction or gangrene (principal); G89.18 Other acute postprocedural pain; Z90.49 Acquired absence of other specified parts of digestive tract; Z98.890 Other specified postprocedural states; Z82.5 Family history of asthma and other chronic lower respiratory diseases; Z83.79 Family history of other diseases of the digestive system
CPT/HCPCS: 86900; 86901; 86850; 49591; 64999; J2250; J1100; J0690; J2405; J1644; 81025